=== PATIENT | female | born 1970 | race African-American/Black ===

== ENCOUNTER → 2016-11-17 | Outpatient (CLI) | payer OTHER ==
--- NOTE | ~2016-11-17 | CT17 ---
[facility] A Service of [facility] RADIOLOGY TEXT RESULTS PATIENT: ALEJANDRA ROLDAN [facility] [birth year] UN[facility] #: [id number] AGE: [address]: Ean Stern II, MD SEX: F ORDER DR: [id number] [facility] [address] [place], [place] [address] [id number] O MR#: [id number] [facility] #: [id number] NAME: ALEJANDRA ROLDAN : 1970 SEX: F STUDY DATE/TIME: 11/17/2016 14:33 UNIT: [facility] ROOM: STUDY DESCRIPTION: CT Angio Head Attending Physician: Ean Stern II., M.D. Referring Physician: Ean Stern II., M.D. Ordering Physician: Ean Stern II., M.D. Primary Care Physician: Phi Terrazas M.D. MEDICAL IMAGING REPORT This report is preliminary unless electronic signature is present EXAM CT angiogram of the head and neck HISTORY Cognitive impairment, 46-year-old patient complains of headache all over with dizziness and blurred vision. Also complains of neck pain for 2 years. She indicates no history of cancer but she does have a history of diabetes. COMMENT CT angiography of the head and neck vessels performed during the intravenous administration of 100 mL of Isovue-370. There is no previous. Imaging was acquired in the axial plane followed by multiple reconstructed and reformatted images for the purpose of 3-D CT angiography of the head and neck vessels. This CT exam was performed with one or more of the following radiation dose reduction techniques: Automatic exposure control, adjustment of mA and/or kV according to patient size, and iterative reconstruction. CT ANGIOGRAM NECK: There is a bovine origin left common carotid artery. There does not appear to be hemodynamically significant narrowing at great vessel origins from the arch. Evaluation of the right carotid system shows 0% stenosis at the right carotid bifurcation by NASCET criteria, and the right carotid siphon is widely patent. Assessment of the left carotid system shows 0% stenosis by NASCET criteria of the left carotid bifurcation. The left carotid siphon is also widely patent. The left vertebral artery is widely patent throughout. The right vertebral artery is widely patent throughout. Both supply the basilar. [facility] A Service of [facility] RADIOLOGY TEXT RESULTS PATIENT: ALEJANDRA ROLDAN LOCATION: [facility] : [birth year] UNIT #: [id number] AGE: [address]: Ean Stern II, MD SEX: F ORDER DR: Evaluation of the intracranial circulation shows no intracranial vascular cutoff. Study is not sensitive for vascular irregularity or more distal stenoses. No focal central stenosis is appreciated. There is no significant anterior communicator seen. There are small bilateral posterior communicators. The dural venous sinuses are patent. No intracranial aneurysm is seen, allowing for the relative limitation of the study, for evaluation for aneurysm at the level of the skull base through the adjacent bones. IMPRESSION 1. Essentially normal CT angiography of the head and neck vessels. Dictated by... Shaniqua Nuñez M.D. THIS IS AN ELECTRONICALLY VERIFIED REPORT Shaniqua Nuñez M.D. at 11/19/2016 7:30 AM MARLON/inder TD: 11/18/2016 22:55 JOB #: [id number] MEDICAL IMAGING REPORT Page 1 of 1 COPY
--- NOTE | ~2016-11-17 | CT23 ---
[facility] A Service of [facility] & [facility] RADIOLOGY TEXT RESULTS PATIENT: ALEJANDRA ROLDAN [facility] 68 UNIT #: [id number] AGE: [address]: Ean Stern II, MD SEX: F ORDER DR: [id number] [facility] [address] [place], [place] [address] [id number] O MR#: [id number] Acc #: [id number] NAME: ALEJANDRA ROLDAN : 1970 SEX: F STUDY DATE/TIME: 11/17/2016 14:33 UNIT: [facility] ROOM: STUDY DESCRIPTION: CT Angio Neck Attending Physician: Ean tSern II., M.D. Referring Physician: Ean Stern II., M.D. Ordering Physician: Ean Stern II., M.D. Primary Care Physician: Phi Terrazas M.D. MEDICAL IMAGING REPORT This report is preliminary unless electronic signature is present EXAM CT angio neck HISTORY Cognitive impairment, 46-year-old patient complains of headache all over with dizziness and blurred vision. Also complains of neck pain for 2 years. She indicates no history of cancer but she does have a history of diabetes. FINDINGS Please see CT ANGIO HEAD report for combined text results. Dictated by... Shaniqua Nuñez M.D. THIS IS AN ELECTRONICALLY VERIFIED REPORT Shaniqua Nuñez M.D. at 11/19/2016 7:31 AM MARLON/inder TD: 11/18/2016 22:57 JOB #: [id number] MEDICAL IMAGING REPORT Page 1 of 1 COPY
[2016-11-17 16:00] LABS: POC - CREATININE 0.54 mg/dL (0.44-1.03); POC - GFR >60.0 mL/min (>60)
== END | disposition home or self-care (01) ==
LOC: CCAT 13:40
PROVIDERS: Psychiatry & Neurology Neurology
DX: R41.89 Other symptoms and signs involving cognitive functions and awareness (principal)
CPT/HCPCS: 70496; 70498; 82565; Q9967